=== PATIENT | male | born 1995 | race Native Hawaiian/Other Pacific Islander ===

== ENCOUNTER 2023-04-13 13:11 | Outpatient (CLI) | payer OTHER ==
--- NOTE | 2023-04-14 02:53 | XRAY Report ---
PROCEDURE: Finger(s) LT INDICATIONS: CRUSHING INJURY OF LEFT MIDDLE FINGER TECHNIQUE: AP hand, 2 views of the third digit acquired. COMPARISON: None. FINDINGS: Bones: No fractures or dislocations. No suspicious bony lesions. Soft tissues: No suspicious soft tissue calcifications or masses. IMPRESSION: No acute bony abnormality. Reviewed by: Mac Lopez MD on 04/14/2023 2:52 AM PDT Approved by: Mac Lopez MD on 04/14/2023 2:52 AM PDT Station ID: [id number]
== END 2023-04-13 23:59 | disposition home or self-care (01) ==
LOC: DI.N 13:11
PROVIDERS: ATTEND Nurse Practitioner
DX: S67.193A Crushing injury of left middle finger, initial encounter (principal)

== ENCOUNTER 2024-04-26 16:47 | Emergency (ER) | payer OTHER ==
[2024-04-26] MEDS: ACETAMINOPHEN 500 MG TABLET PO STA (17:24)
[2024-04-26] MEDS: BUPIVACAINE 0.5% PF 10 ML VIAL IM ONE (17:45)
[2024-04-26] MEDS ORDERED: ceFAZolin (2G) 2 GM in SODIUM CHLORIDE 0.9% 100ML 100 ML IV STA (18:43)
--- NOTE | 2024-04-26 18:47 | XRAY Report ---
PROCEDURE: Hand 3+V RT INDICATIONS: Trauma TECHNIQUE: 3 views of the hand(s) acquired. COMPARISON: None. FINDINGS: Bones: Minimally displaced second digit tuft fracture. Mildly displaced third digit tuft fracture. Soft tissues: No suspicious soft tissue calcifications or masses. IMPRESSION: Second and third digit tuft fractures. Reviewed by: Levar Carlos MD on 04/26/2024 5:45 PM AKHARVEY Approved by: Levar Carlos MD on 04/26/2024 5:45 PM AKDT Station ID: [id number]
[2024-04-26] MEDS: HYDROcod/ACETAM 5/325 MG TABLET PO STA (18:50)
--- NOTE | 2024-04-26 19:09 | ED Physician Documentation ---
History of Present Illness - Stated complaint Stated Complaint: FINGER INJ/CHIN LAC - Chief complaint Chief Complaint: Trauma Ext - Additonal information Additional information: 29-year-old male with history of hypertension was at work carrying about 70 pounds with weights and tripped fell and crushed his right hand under the weight hitting his chin. He has pain to his chin no loss of consciousness no nausea or vomiting no blood thinners he also has pain to his middle index and ring finger with bleeding at the tip of his index and middle finger. PD PAST MEDICAL HISTORY - Past Medical History Cardiovascular: Hypertension HEENT: None - Past Surgical History Past Surgical History: No - Present Medications Home Medications: Ambulatory Orders Medication Instructions Recorded Confirmed HYDROcod/ACETAM 5/325 [Kirklin 5/325] 1 - 2 tablet PO Q6H PRN #14 tablet 04/26/24 cephALEXin [Keflex] 500 mg PO Q6H 5 Days #28 cap 04/26/24 - Allergies Allergies/Adverse Reactions: Allergies Allergy/AdvReac Type Severity Reaction Status Date / Time No Known Drug Allergies Allergy Verified 04/26/24 16:58 - Social History Does the pt smoke?: No Smoking Status: Never smoker ETOH Use: Beer Does the pt have substance abuse?: No - Immunizations Immunizations are current?: Yes - POLST Patient has POLST: No PD ED PE NORMAL - Vitals Vital signs reviewed: Yes - General General: Alert and oriented X 3, No acute distress, Well developed/nourished - HEENT HEENT: Other (small chin laceration) - Neck Neck: No bony TTP, C-Spine cleared by NEXUS criteria - Cardiac Cardiac: RRR - Respiratory Respiratory: No respiratory distress - Neuro Neuro: Alert and oriented X 3, personal lines insurance agent 2-12 intact, No motor deficit, No sensory deficit, Normal speech Eye Opening: Spontaneous Motor: Obeys Commands Verbal: Oriented GCS Score: 15 - Psych Psych: Normal mood, Normal affect Results - Vitals Vitals: Oxygen O2 Source Room air - Rads (name of study) Right hand x-ray Relevant Findings:: Final report received, EMP independent interpretation of test, Other (Second and third digit tuft fracture) Procedures - Laceration (location) chin laceration Length in cm: 0.5 Wound type: Linear, Into subcut fat, Clean Anesthesia: Marcaine 0.25% Wound preparation: Irrigated copiously NS, Wound explored, To the base Skin layer closure: Dermabond, Steri strips Other: Patient tolerated well, No complications, Tetanus UTD right index finger Length in cm: 0.5 Wound type: Linear, Clean Neurovascular status: Sensory intact Wound preparation: Other (soaked in hibiclense and water, broken tip of fingernail removed) Skin layer closure: Steri strips, Interrupted, Size #-0 - enter number (5-0), Sutures - enter # (2) Other: Patient tolerated well, No complications, Neurovascular intact, Dressing applied, Tetanus UTD, Other (finger splint applied) PD Medical Decision Making - ED course ED course: 29-year-old male presents emergency department for pain to his second third and fourth finger as well as chin laceration after mechanical fall with 70 pound weight dropped onto right hand. Chin bleeding is well-controlled he is up-to-date with tetanus shot patient opted to go with Steri-Strips and Dermabond versus sutures as patient said that he wanted to avoid needles at all costs. Patient was in a significant amount of pain to his second and third finger he opted for digital block to help alleviate the pain. Digital block was complete without any complications or difficulty and patient reports complete alleviation of pain. X-rays are complete for further evaluation and he appears to have a tuft fracture to his second and third finger. On his second finger there appears to be a laceration at the tip of his nail there is a partial nail avulsion and the loose portion of the nail was removed without any difficulty. After that nail was removed there were appears to be a laceration underneath the nailbed that goes towards the medial portion of the finger. 2 interrupted sutures were placed without any difficulty. Bacitracin is applied over the avulsed portion of the nail and was left open with nonadhesive gauze and finger splint. On the third finger the nail matrix appears to be disrupted although it is still intact so I opted to leave the nail in place patient was informed that his nail will likely fall off we put a splint on that finger as well for the tuft fracture and patient was told to keep a thick layer of bacitracin at the nail matrix to help encourage a new great nail to grow back. I am prescribing a short course of short-acting opioid pain medication for this patient. I have reviewed the patients CONTRACTING SPECIALIST and no concerning findings were noted. I have discussed that the opioids are for short term therapy only, and will not be refilled from the ED. Patient was started on Keflex because of the wounds to his hands as well as the tuft fractures does not appear to be an open fracture. Patient told to follow- up with his primary care provider taught how to manage to fractures and wounds at home as well as his chin wound. Return precautions given patient safe for discharge at this time. Departure - Departure Disposition: 01 Home, Self Care Clinical Impression: Closed fracture of tuft of distal phalanx of finger, Fingernail avulsion, partial Chin laceration Qualifiers: Encounter type: initial encounter Qualified Code(s): S01.81XA - Laceration without foreign body of other part of head, initial encounter Crushed finger, distal Qualifiers: Encounter type: initial encounter Qualified Code(s): S67.10XA - Crushing injury of unspecified finger(s), initial encounter Condition: Good Instructions: ED Laceration Facial Skin Glue, ED Avulsion Nail Complete Prescriptions: cephALEXin [Keflex] 500 mg PO Q6H 5 Days #28 cap HYDROcod/ACETAM 5/325 [Kirklin 5/325] 1 - 2 tablet PO Q6H PRN #14 tablet PRN Reason: Pain Comments: You have broken the tip of your pointer finger and middle finger. I have put 2 stitches on your right pointer finger. Come back for any signs of infection which would include: Redness, swelling, drainage, increased pain, or fevers. You can wash it soap and water. Keep it covered and moist with bacitracin ointment which is available over the counter; avoid neosporin. Follow-up with your physician in 8-10 days for suture removal. I have put Steri-Strips and glue in your chin you can remove these in the 5 to 7 days. It is okay to get your chin wet although a little more dry you can keep it the longer the Steri-Strips and glue will stay on. He will leave your finger splints on for the next 6 weeks. Please make an appointment to follow-up with your primary care provider to have these wounds checked I have sent a prescription of Keflex to your preferred pharmacy as we discussed keep the nailbed of your right middle finger moist with bacitracin to have encourage a new nail to grow in. That fingernail will eventually fall off. Although we will keep the finger splints on for about 6 weeks take them off periodically and bend your finger so that you do not get a locked finger. Forms: PCP List Discharge Date/Time: 04/26/24 19:42
[2024-04-26] MEDS: ceFAZolin (2G) 2 GM in SODIUM CHLORIDE 0.9% MINIBAG 100 ML IV STA (19:42)
[2024-04-26] MEDS: BACITRACIN ZINC OINT 1 PACKET TOP STA (19:42)
[2024-04-26 19:43] VITALS: BP 142/94; O2SAT 100
== END 2024-04-26 19:42 | disposition home or self-care (01) ==
LOC: EDUNIT# → ED 16:47
DX: S01.81XA Laceration without foreign body of other part of head, initial encounter (principal); S62.630A Displaced fracture of distal phalanx of right index finger, initial encounter for closed fracture; S62.632A Displaced fracture of distal phalanx of right middle finger, initial encounter for closed fracture; S61.310A Laceration without foreign body of right index finger with damage to nail, initial encounter; S61.302A Unspecified open wound of right middle finger with damage to nail, initial encounter; W01.0XXA Fall on same level from slipping, tripping and stumbling without subsequent striking against object, initial encounter; W20.8XXA Other cause of strike by thrown, projected or falling object, initial encounter; Y93.89 Activity, other specified; Y92.89 Other specified places as the place of occurrence of the external cause
CPT/HCPCS: 11730; 12011; 73130; 99284; A9270